=== PATIENT | female | born 2005 | race Caucasian/White ===

== ENCOUNTER 2024-05-27 04:12 | Emergency (ER) | payer OTHER, SELFPAY ==
[2024-05-27 04:25] VITALS: BP 130/67; PULSE 117; RESP 18; TEMP 37.1; O2SAT 100; BMI 24.0
[2024-05-27 04:50] LABS: MANUAL DIFF FLAG NO
[2024-05-27 04:51] LABS: Basophils Percent Auto 0.2 % (0-2); Eosinophils Absolute Auto 0.2 X10*3/uL (0.0-0.4); Eosinophils Percent Auto 1.1 % (0-4); Hematocrit 39.3 % (37.0-47.0); Hemoglobin 14.3 g/dl (12.0-16.0); Imm Gran Abs Auto 0.05 X10*3/uL (0.00-0.03); Imm Gran Pct Auto 0.3 % (0.0-0.4); Lymphocytes Absolute Auto 0.9 X10*3/uL (1.2-4.9); Lymphocytes Percent Auto 6.2 % (20-40); Mean Corpuscular HGB Conc 36.4 g/dl (31.0-35.0); Mean Corpuscular Hemoglobin 31.3 pg (27.0-33.0); Mean Platelet Volume 10.1 fL (9.4-12.3); Monocytes Absolute Auto 0.8 X10*3/uL (0.1-1.2); Monocytes Percent Auto 5.3 % (2-11); Neutrophils Absolute Auto 12.9 x10*3/uL (2.0-8.3); Neutrophils Percent Auto 86.9 % (45-73); Platelet Count 237 X10*3/uL (160-400); Red Blood Count 4.57 X10*6/uL (4.20-5.50); Red Cell Distribution Width 12.7 % (11.0-16.0); White Blood Count 14.8 X10*3/uL (4.8-10.8)
[2024-05-27 04:53] LABS: Appearance Urine Turbid; Color Urine Dark Yellow; Glucose Urine UA Negative (Negative); Leukocyte Esterase Urine Large (3+) (Negative); Nitrite Urine Negative (Negative); PH 5.5 (5.0-9.0); Specific Gravity - Urine 1.015 (1.005-1.025); UMIC TRIGGER UACC YES; UPreg QC Valid YES; Urine Blood Large (3+) (Negative); Urine Ketones Trace mg/dL (Negative); Urine Pregnancy NEGATIVE (NEGATIVE); Urine Protein 100 (2+) mg/dL (Neg-Trace)
[2024-05-27 05:04] LABS: Bacteria Urine 1+ (None Seen); Hyaline Casts Urine 0-2 /LPF (0-2); UACC Culture Trigger YES; WBC Urine >50 /HPF (0-5)
[2024-05-27 05:11] LABS: Alanine Aminotransferase 11 U/L (0-31); Albumin Level 4.4 g/dL (3.5-5.0); Anion Gap 14 (12-20); Aspartate Amino Transferase 21 U/L (5-31); Bilirubin Direct 0.3 mg/dL (0.0-0.5); Bilirubin Total 0.7 mg/dL (0.0-1.0); Blood Urea Nitrogen 9 mg/dL (9-16); Calcium 9.3 mg/dL (8.4-10.2); Carbon Dioxide 21 mmol/L (22-29); Chloride 112 mmol/L (96-108); Creatinine Clr Calc Pharmacy 92.7; Estimated Glomerular Filt Rate > 60; Glucose Random 101 mg/dL (60-115); Lipase 15 U/L (8-78); Potassium 3.6 mmol/L (3.3-5.1); Sodium 143 mmol/L (135-145); Total Protein 7.4 g/dL (6.5-8.0)
[2024-05-27 05:20] LABS: Alkaline Phosphatase 142 U/L (39-117)
--- NOTE | 2024-05-27 05:35 | ED_ITS ---
HPI - Abdominal Pain General Chief Complaint: Abdominal Pain Stated Complaint: abd pain Time Seen by Provider: 05/27/24 05:21 Source: patient Mode of arrival: ambulatory Limitations: no limitations History of Present Illness ED Provider: Dr. Lakia Caal HPI narrative: Patient comes to the emergency room complaining of nausea vomiting suprapubic pain that started approximately 4 hours ago. Patient denies fever chills, no back pain. Patient states that what is bothering her the most is the vomiting. Patient also complaining of hematuria and frequency. Related Data Previous Rx's ?Medication ?Instructions ?Recorded ketorolac 10 mg tablet 10 mg PO TID PRN pain #10 tabs 05/27/24 levofloxacin 500 mg tablet 500 mg PO DAILY #9 tabs 05/27/24 ondansetron HCl 4 mg tablet 4 mg PO Q6H PRN nausea and 05/27/24 vomiting #14 tabs Allergies Allergy/AdvReac Type Severity Reaction Status Date / Time No Known Allergies Allergy Verified 05/27/24 04:28 Review of Systems Review of Systems Constitutional : No Weight loss, No Fever, No Chills, No Night Sweats, No Fatigue, No Malaise ENT/Mouth : No Hearing loss, No Ear Pain, No Nasal Congestion, No Sinus Pain, No Hoarseness, No sore throat, No Rhinorrhea, No Swallowing Difficulty Eyes: No Eye Pain, No Swelling, No Redness, No Foreign Body, No Discharge, No Vision Changes Cardiovascular : No Chest Pain, No SOB, No Dyspnea on Exertion, No Orthopnea, No Edema, No Palpitations Respiratory : No Cough, No Sputum, No Wheezing, No Smoke Exposure, No Dyspnea Gastrointestinal : Complaining of nausea and vomiting, No Diarrhea, No Constipation, complaining of suprapubic discomfort, no hematochezia or melena Genitourinary : no irregular bleeding, complaining of Dysuria, No Urinary Frequency, No Hematuria, No Urinary Incontinence, No Urgency, No Flank Pain, No Urinary Flow Changes, No Hesitancy Musculoskeletal : No joint pain, No Myalgias, No Joint Swelling Skin : No Skin Lesions, No rash Neuro : No Weakness, No Numbness, No Paresthesias, No Loss of Consciousness, No Dizziness, No Headache Psych : No Anxiety/Panic, No Depression, No SI/HI/AH/VH, No Social Issues, Heme/Lymph: No Bruising, No Bleeding,No Lymphadenopathy Endocrine : No Polyuria, No Polydipsia, No Temperature Intolerance Physical Exam ED Vital Signs: Vital Signs - 24 hr 05/27/24 04:25 Temperature 98.7 F Pulse Rate 117 H Respiratory Rate 18 Blood Pressure 130/67 Pulse Oximetry 100 Oxygen Delivery Method Room Air BMI result Body Mass Index 24.0 Const Other: Appearance: Alert. Oriented X3. No acute distress. Eyes: Pupils equal, round and reactive to light. ENT: Pharynx normal. Neck: Normal inspection. Neck supple. No lymph nodes noted. No crepitus CVS: Normal heart rate and rhythm. Pulses normal. Normal S1 and S2 Respiratory: No respiratory distress. Breath sounds normal. No Wheezing. No rales Abdomen: Soft , mild suprapubic discomfort No rigidity. No distention. No CVA tenderness Skin: Skin warm and dry. Normal skin color. Normal skin turgor. Extremities: No lower extremity edema. No Lacerations. No Rash Neuro: Oriented X 3. No motor deficit. No sensory deficit. Moving all extremities. No slurred speech. CN 2 through 12 grossly intact Psych: calm, cooperative, a bit anxious Medical Decision Making Medical Decision Making [facility] Narrative: My interpretation of labs: Patient's white blood cell count is 14.8, chemistry within normal limits, normal LFTs and lipase, test negative, positive for UTI. Patient receiving IV fluids, Zofran, ketorolac and levofloxacin. Patient's vitals stable, no episodes of hypotension. Patient is slightly tachycardic , secondary to a combination of dehydration and vomiting I discussed with the patient that if she does not have any improvement with the next 24 hours or if she has any worsening symptoms any time, she needs to return to the emergency room. Patient agrees with plan. Differential Diagnosis Differential Diagnoses: The differential diagnosis associated with the presentation includes (UTI, pyelonephritis) Admission/Observation Consideration of admission/observation: Escalation of care including admission/observation considered Lab Data [facility] Lab Attestation statement: I reviewed the patient's lab results. 05/27/24 04:43 05/27/24 04:43 Labs: Lab Results 05/27/24 Range/Units 04:43 WBC 14.8 H (4.8-10.8) X10*3/uL RBC 4.57 (4.20-5.50) X10*6/uL Hgb 14.3 (12.0-16.0) g/dl Hct 39.3 (37.0-47.0) % MCV 86.0 (80.0-98.0) fL MCH 31.3 (27.0-33.0) pg MCHC 36.4 H (31.0-35.0) g/dl RDW 12.7 (11.0-16.0) % Plt Count 237 (160-400) X10*3/uL MPV 10.1 (9.4-12.3) fL Immature Gran % (Auto) 0.3 (0.0-0.4) % Neut % (Auto) 86.9 H (45-73) % Lymph % (Auto) 6.2 L (20-40) % [place] % (Auto) 5.3 (2-11) % Eos % (Auto) 1.1 (0-4) % Baso % (Auto) 0.2 (0-2) % Lymph # (Auto) 0.9 L (1.2-4.9) X10*3/uL [place] # (Auto) 0.8 (0.1-1.2) X10*3/uL Eos # (Auto) 0.2 (0.0-0.4) X10*3/uL Baso # (Auto) 0.0 (0.0-0.2) X10*3/uL Abs Immat Gran (auto) 0.05 H (0.00-0.03) X10*3/uL Absolute Neuts (auto) 12.9 H (2.0-8.3) x10*3/uL Absolute Nucleated RBC 0.000 (0.0-0.012) X10*3/uL Nucleated RBC % (auto) 0.0 (0.0-0.2) /100WBC Sodium 143 (135-145) mmol/L Potassium 3.6 (3.3-5.1) mmol/L Chloride 112 H (96-108) mmol/L Carbon Dioxide 21 L (22-29) mmol/L Anion Gap 14 (12-20) BUN 9 (9-16) mg/dL Creatinine 0.80 (0.5-1.4) mg/dL Estim Creat Clear Calc 92.7 Estimated GFR > 60 Random Glucose 101 (60-115) mg/dL Calcium 9.3 (8.4-10.2) mg/dL Total Bilirubin 0.7 (0.0-1.0) mg/dL Direct Bilirubin 0.3 (0.0-0.5) mg/dL AST 21 (5-31) U/L ALT 11 (0-31) U/L Alkaline Phosphatase 142 H (39-117) U/L Total Protein 7.4 (6.5-8.0) g/dL Albumin 4.4 (3.5-5.0) g/dL Lipase 15 (8-78) U/L Urine Color Dark Yellow Urine Appearance Turbid Urine pH 5.5 (5.0-9.0) Ur Specific [place] 1.015 (1.005-1.025) Urine Protein 100 (2+) H (Neg-Trace) mg/dL Urine Glucose (UA) Negative (Negative) mg/dL Urine Ketones Trace (Negative) mg/dL Urine Blood Large (3+) H (Negative) Urine Nitrite Negative (Negative) Ur Leukocyte Esterase Large (3+) H (Negative) Urine RBC 11-20 H (0-2) /HPF Urine WBC >50 H (0-5) /HPF Ur Squamous Epith Cells 11-20 (0-2) /HPF Urine Bacteria 1+ (None Seen) Hyaline Casts 0-2 (0-2) /LPF Urine Test NEGATIVE (NEGATIVE) Critical Care Time Critical Care Time Critical Care Time: Yes Total Critical Care Time: 60 Attestation: I have personally provided critical care time. Time includes review of lab data, radiology results, discussion with consultants, and monitoring for potential decompensation. Intervention performed as documented. Discharge Plan Discharge Clinical Impression: UTI (urinary tract infection), Nausea & vomiting Patient Disposition: Home, Self-Care Instructions: Urinary Tract Infection in Women (ED), Acute Nausea and Vomiting (ED) Additional Instructions: Please follow-up with your primary care physician tomorrow. If you have any worsening or new symptoms, please return to the emergency room or call 911 Prescriptions: New levofloxacin 500 mg tablet 500 mg PO DAILY Qty: 9 0RF ketorolac 10 mg tablet 10 mg PO TID PRN (Reason: pain) Qty: 10 0RF Rx Instructions: Do not use this medication with other NSAIDs, only Tylenol if needed ondansetron HCl 4 mg tablet 4 mg PO Q6H PRN (Reason: nausea and vomiting) Qty: 14 0RF Stand Alone Forms: Work/School Release Print Language: Kyrgyz
--- OUTSIDE RECORDS SUMMARY | 2024-05-27 05:39 | XMS_ITS | Clinical Summary ---
Author Organization [facility] Address [address] [place] [id number] Phone Care Team Providers Care Explosive Ordnance Disposal Technician Name Role Phone Nelsy Hassan MD Primary Care Provider [phone] Allergies No known active allergies Medications No known medications Active Problems Problem Noted Date Diagnosed Date Primary amenorrhea 04/24/2021 Assessment & Plan (04/24/2021 2:47 PM EST): Four years from start of pubertal development, is Chiki 4-5 on exam. Recommend [facility] evaluation, numbers given for Dr Debora Stephenson, Dr Wright, and N[facility]. Failed vision screen 03/14/2020 Overview (03/14/2020): 02/2020 and referred to opthalmologist Assessment & Plan (04/24/2021 2:34 PM EST): Saw eye doctor, no glasses. Recommend f/u there yearly. Body mass index (BMI) pediat mahin, 5th percentile to less than 85th percentile for age 1203/03/2019 Resolved Problems Problem Noted Date Diagnosed Date Resolved Date Concussion without loss of consciousness 04/24/2021 04/24/2021 Assessment & Plan (04/24/2021 2:34 PM EST): This was her second concussion. Symptoms resolved. Pain of right knee after injury 05/31/2019 03/14/2020 Overview (10/20/2019): 04/2019 right knee contact injury/contusion. Seen at [facility] with FU in 3 weeks. Continue home PT and FU with [facility] PRN 09/2019. Hip pointer 02/06/2018 03/14/2020 Overview (07/22/2018): [facility] and FU with some activity restrictions. See [facility] note 01/2018. 07/2018 per rere resolved and continue exercises and back to PT and [facility] if recurs. Mild intermittent asthma without complication 12/28/19 16 03/14/2020 Encounters Date Type Department Care Team Description 05/27/2024 4:12 AM EST - Present Hospital Encounter [facility] - Patient Ping from Last 3 Months Immunizations Immunization Administration Dates Next Due COVID-19 Pfizer, bivalent, 12+ years 06/17/2022 COVID-19 Pfizer, [place]-sucros e, 12+ years 04/24/2021 DTaP 04/08/2006 DTaP / Hep B / IPV 2004,2004, 005 H1N1 02/21/2009 HPV Vaccine 9 Valent 02/09/2017,01/29/2016 Hep A, ped/adol 03/02/2018,02/09/2017 Hep B 2004 Hep B, ped/adol 2004 Hib (PRP-T) 04/08/2006, 5,2004,07/03 IPV 11/12/2011 Influenza 05/25/2007 Influenza, injectable, MDCK, preservative free, quadrivalent 06/17/2022 Influenza, injectable, quadrivalent 12/15/2011,0 11/12/2011 Influenza, injectable, quadr ivalent, preservative free 04/24/2021,03/14/2020,03/03/2019,03/02,02/09/2017,01/29/2016,11/18/2014 ,11/18/2013 Influenza, injectable, triva lent, preservative free 04/08/2006,05/06/2005,01/25/2005 MMR 02/21/2009,05/06/2005 Meningococcal Conj (Menactra) MCV4P 04/24/2021,1 03/30/2015 Pneumococcal Conjugate 2004,2004, Tdap 04/24/2021,11/12/2011 Varicella 02/21/2009,05/06/2005 Family History Medical History Relation Name Comments No Known Problems Maternal Grandfather No Known Problems Maternal Grandmother Anemia Mother No Known Problems Paternal Grandfather No Known Problems Paternal Grandmother Relation Name Status Comments Father Alive healthy age: 35 diagnosed with Asthma, unspecified Father's Brother Alive Father's Sister Alive Maternal Grandfather Alive Healthy Maternal Grandmother Alive Healthy Mother Alive healthy age: 35 Other Alive Siblings: Healt hy sister- cleft lip/palate Paternal Grandfather Alive Healthy Paternal Grandmother Alive Healthy Sister Alive cleft lip and p alate Social History Tobacco Use Types Packs/Day Years Used Date Smoking Tobacco: Never Smokeless Tobacco: Never Tobacco Cessation:Counseling Given: Not Answered Alcohol Use Standard Drinks/Week Comments Never 0 (1 standard drink = 0.6 oz pur e alcohol) Hunger/Food Answer Date Recorded In the last 12 months, did y ou or your family ever eat less than you felt you should because there wasn't enough money for food? No 04/24/2021 Stable Housing Answer Date Recorded Are you worried that in the next 2 months you may not have stable housing? No 04/24/2021 Transportation Concerns Answer Date Rec orded In the last 12 months, have you or your family ever had to go without healthcare because you didn't have a way to get there? No 04/24/2021 Hazards in Home Answer Date Recorded Think about the place you li ve. Do you have problems with any of the following? Pests (mice or roaches), mold, no/not working smoke detectors, water leaks, no window guards. No 2021 Financing Utilities Answer Date Recorde d In the last 12 months, has t he electric, gas, oil, or water company threatened to shut off your services in your home? No 04/24/2021 Safety at Home Answer Date Recorded Are you or your family worried about feeling saf e in your home? No 04/24/2021 Outside Support Answer Date Recorded Do you feel that you need mo re support from other people or programs to help you care for yourself or your family? No 04/24/2021 Understanding Health Concerns Answer Da te Recorded Do you need help understandi ng your or your child's healthcare needs (diagnosis, medications, plan, etc.)? No 04/24/2021 Financing Health Concerns Answer Date R ecorded In the last 12 months, was t here a time when your child needed to see a doctor or get medications or supplies but could not because of cost? No 04/24/2021 Missing School or Work Answer Date Mamadou rded Did you or your child miss s chool or work because of a health problem that could have been avoided? No 04/24/2021 Comments No Sex and Gender Information Value Date Recorded Sex Assigned at Not on file Legal Sex Female 6:08 PM EDT Gender Identity Not on file Sexual Orientation Choose not to disclose 2022 9:47 AM EDT Last Filed Vital Signs Vital Sign Reading Time Taken Comments Blood Pressure 116/70 06/17/2022 9:32 AM EDT Pulse 102 05/04/2012 12:00 AM EST Temperature 37.1 ??C (98.7 ??F) 10/17/2020 7:37 PM ED T Respiratory Rate - - Oxygen Saturation 97% 05/04/2012 12:00 AM EST Inhaled Oxygen Concentration - - Weight 52.8 kg (116 lb 6.4 oz) 06/17/2022 9:32 A M EDT Height 160.7 cm (5' 3.25 ) 06/17/2022 9:32 AM ED T Body Mass Index 20.46 06/17/2022 9:32 AM EDT Plan of Treatment Health Maintenance Due Date Last Done Comments Men B Vaccine (1 of 2 - Standard) 2020 Influenza Vaccines (#1) 2023 06/18/19, 04/24/2021, 03/14/2020, Additional history exists COVID-19 Vaccine ( season) 2023 06/17/2022, 04/24/2021, 08/06/2020, Additional history exists Chlamydia and Gonorrhea Screening 03/23/2024 DTaP,Tdap,and Td Vaccines (7 - Td or Tdap) 04/24/2031 04/24/2021, 11/12/2011, 04/08/2006, Additional history exists Hepatitis B Vaccines Completed 2004, 2004, 2004, Additional history exists Pneumococcal Vaccine Aged Out 2004, 2004, 2004 No longer eligible based on patient's age to complete this topic HIB Vaccines Completed 04/08/2006, 10/21, 2004, Additional history exists MMR Vaccines Completed 02/21/2009, 05/06/2005 Varicella Vaccines Completed 02/21/2009, 05/06/2005 IPV Vaccines Completed 11/12/2011, 10/21, 2004, Additional history exists HPV Vaccines Completed 02/09/2017, 01/29/2016 Hepatitis A Vaccines Completed 03/02/2018, 02/10/20 17 Meningococcal Vaccine Completed 04/24/2021, 016 Insurance NON PCC [facility] NON PCC Care Teams Explosive Ordnance Disposal Technician Relationship Specialty Start Date End Date Nelsy Hassan MD [address] [place] [phone] PCP - General Pediatrics 04/30/22
--- OUTSIDE RECORDS SUMMARY | 2024-05-27 05:40 | XMS_ITS | Encounter Summary ---
Author Organization [facility] Address [address] [place] [phone] Phone Care Team Providers Care Lsat Instructor Name Role Phone Nelsy Hassan MD Primary Care Provider [phone] Reason for Visit * Reason Comments ED Admission Encounter Details Date Type Department Care Team (Late st Contact Info) Description 05/27/2024 4:12 AM EST - Present Hospital Encounter [facility] - Patient Ping Social History Tobacco Use Types Packs/Day Years Used Date Smoking Tobacco: Never Smokeless Tobacco: Never Alcohol Use Standard Drinks/Week Comments Never 0 [...] not to disclose 2022 9:47 AM EDT documented as of this encounter Plan of Treatment Not on file documented as of this encounter Visit Diagnoses Not on filedocumented in this encounter Care Teams Lsat Instructor Relationship Specialty Start Date End Date Nelsy Hassan MD [address] [place] [phone] PCP - General Pediatrics 04/30/22 documented as of this encounter
[2024-05-27] MEDS: 0.9 % Sodium Chloride 1,000 ML 999 ML IVCONT (05:49)
[2024-05-27] MEDS: Ketorolac Tromethamine 30 MG/ML VIAL IVPUSH (05:49)
[2024-05-27] MEDS: ondansetron HCL 4 MG/2 ML VIAL IVPUSH (05:49)
[2024-05-27] MEDS: levoFLOXacin/D5W 500 MG/100 ML PIGGYBACK 100 MG IV (06:04)
[2024-05-27 07:10] VITALS: BP 105/77; PULSE 91; RESP 16; TEMP 36.6; O2SAT 100
== END 2024-05-27 07:16 | disposition home or self-care (01) ==
PROVIDERS: Emergency Provider Emergency Medicine; PCP Pediatrics
DX: N39.0 Urinary tract infection, site not specified (principal); R11.2 Nausea with vomiting, unspecified
CPT/HCPCS: 36415; 80048; 80076; 81001; 81025; 83690; 85025; 87086; 96374; 96375; 99285; J1885; J1956; J2405